=== PATIENT | female | born 1980 | race Caucasian/White ===

== ENCOUNTER 2023-01-15 09:01 | Emergency (ER) | payer OTHER ==
[~2023-01-15] VITALS: Ht 188 cm; Wt 113.0 kg
[2023-01-15 09:18] VITALS: TEMP 98.9; O2SAT 97
[2023-01-15 10:45] VITALS: BP 170/100; PULSE 79; RESP 18
[2023-01-15] MEDS ORDERED: KETOROLAC 60MG/2ML VIAL IM ONE (10:45)
[2023-01-15] MEDS ORDERED: IBUP-2029 MT (10:47)
== END 2023-01-15 11:02 | disposition home or self-care (01) ==
LOC: ER 09:01
DX: M25.511 Pain in right shoulder (principal); Z68.32 Body mass index [BMI] 32.0-32.9, adult; Z98.890 Other specified postprocedural states
CPT/HCPCS: 99283; 73030; 96372; J1885